=== PATIENT | female | born 1960 ===

== ENCOUNTER 2018-01-08 18:03 | Emergency (ER) | payer MEDICAID ==
[2018-01-08 18:57] VITALS: BP 115/79; PULSE 61; RESP 20; TEMP 97.9; O2SAT 97
--- NOTE | 2018-01-08 20:43 | ED PDOC ---
HPI: General Adult Time Seen by Provider: 01/08/18 19:07 Chief Complaint (Nursing): Headache Chief Complaint (Provider): Headache History Per: Patient History/Exam Limitations: no limitations Onset/Duration Of Symptoms: Days (x 1 week) Current Symptoms Are (Timing): Still Present Additional Complaint(s): 57 year old female presents to the ED for evaluation. She reports developed nasal congestion, mild sore throat without cough or facial pain 1 week ago. The next day she states that developed painful pimple like mass on right eyebrow. Since the the redness around pimple worsened. Denies fever, trauma, numbness and tingling. PMD: Dr. Judith Medrano Past Medical History Reviewed: Historical Data, Nursing Documentation, Vital Signs Vital Signs: Last Vital Signs Temp 97.9 F 01/08/18 19:02 Pulse 61 01/08/18 18:55 Resp 20 01/08/18 18:55 BP 115/79 01/08/18 18:55 Pulse Ox 97 01/09/18 12:58 - Medical History PMH: Hypercholesterolemia - Surgical History Surgical History: Cholecystectomy - Family History Family History: States: No Known Family Hx - Immunization History Hx Tetanus Toxoid Vaccination: No Hx Influenza Vaccination: No Hx Pneumococcal Vaccination: No - Home Medications Home Medications: Ambulatory Orders Medication Instructions Recorded Aleve PRN 09/02/13 oxyCODONE/Acetaminophen [Percocet 1 tab PO Q6H PRN #12 tab 09/02/13 5/325 mg Tab] Amoxicillin/Clavulanate [Augmentin 1 tab PO BID #20 tab 01/08/18 500 MG-125 MG] Fluticasone Propionate [Flonase] 2 spr NS DAILY PRN #1 bottle 01/08/18 - Allergies Allergies/Adverse Reactions: Allergies Allergy/AdvReac Type Severity Reaction Status Date / Time iodine Allergy RASH Verified 01/08/18 19:02 Review of Systems ROS Statement: Except As Marked, All Systems Reviewed And Found Negative ENT: Positive for: Nose Congestion, Throat Pain (mild ) Respiratory: Negative for: Cough Physical Exam - Reviewed Nursing Documentation Reviewed: Yes Vital Signs Reviewed: Yes - Physical Exam Appears: Positive for: No Acute Distress Skin: Positive for: Warm (erythematous papule with mild surrounding erythema and without vesicles) Eye Exam: Positive for: Normal appearance, EOMI, PERRL. Negative for: Periorbital swelling, Periorbital tenderness ENT: Positive for: Normal ENT Inspection Cardiovascular/Chest: Positive for: Regular Rate, Rhythm. Negative for: Murmur Respiratory: Positive for: Normal Breath Sounds. Negative for: Respiratory Distress Neurologic/Psych: Positive for: Alert, Oriented (x 3). Negative for: Motor/ Sensory Deficits, Aphasia, Facial Droop - ECG O2 Sat by Pulse Oximetry: 97 (RA) Pulse Ox Interpretation: Normal Disposition - Clinical Impression Clinical Impression: Cellulitis, URI (upper respiratory infection) - Patient ED Disposition Is Patient to be Admitted: No - Disposition Referrals: [facility] [Outside] Disposition: Routine/Home Disposition Time: 20:00 Condition: STABLE Additional Instructions: Follow up with PMD for further evaluation. Return to ED immediately if symptoms worsen. Prescriptions: Amoxicillin/Clavulanate [Augmentin 500 MG-125 MG] 1 tab PO BID #20 tab Fluticasone Propionate [Flonase] 2 spr NS DAILY PRN #1 bottle PRN Reason: Allergy Symptoms Instructions: Viral Upper Respiratory Infection, Adult (DC), Cellulitis (Skin Infection), Adult (DC) Forms: [employer] (Greenlandic) Print Language: IRISH
== END 2018-01-08 20:33 | disposition home or self-care (01) ==
LOC: H.ER 18:03
DX: J06.9 Acute upper respiratory infection, unspecified (principal); L03.213 Periorbital cellulitis